=== PATIENT | male | born 1945 | race Caucasian/White ===

== ENCOUNTER 2017-03-12 09:59 | Inpatient (IN) | payer MEDICARE ==
[~2017-03-12] VITALS: Ht 190.5 cm; Wt 69.6 kg
[2017-03-12] MEDS ORDERED: VENTOLIN HFA IN (10:22)
[2017-03-12] MEDS ORDERED: PULMICORT0.25 MG/2 IN (10:25)
[2017-03-12] MEDS ORDERED: DIGOXIN0.125 MG PO (10:25)
[2017-03-12] MEDS ORDERED: ENALAPRIL2.5 MG PO (10:26)
[2017-03-12] MEDS ORDERED: DILTIAZEM30 MG PO (10:26)
[2017-03-12] MEDS ORDERED: LOPRESSOR25 MG PO (10:27)
[2017-03-12] MEDS ORDERED: GUAIFENESIN400 MG PO (10:27)
[2017-03-12] MEDS ORDERED: SIMVASTATIN10 MG PO (10:28)
[2017-03-12] MEDS ORDERED: TRAMADOL HCL50 MG PO (10:29)
[2017-03-12] MEDS ORDERED: CETIRIZINE10 MG PO (10:30)
[2017-03-12] MEDS ORDERED: COUMADIN5 MG PO (10:30)
[2017-03-12 10:54] LABS: HEMATOCRIT 40.5 % (39.0-50.0); IMMATURE GRANULOCYTES 0.8 % (0.0-1.0); MEAN CELL VOLUME 90.4 fL CALC (80.0-100.0); MEAN CORPUSCULAR HGB CONC 32.1 g/L CALC (32.0-36.0); NEUT# 13.56 thou/uL (1.82-7.42); RED BLOOD COUNT 4.48 mill/uL (4.70-6.10); RED CELL DISTRI WIDTH 11.8 % (11.5-15.5)
[2017-03-12 11:13] LABS: ALBUMIN 3.2 g/dL (3.2-5.0); ALKALINE PHOSPHATASE 96 u/l (38-126); AMYLASE < 30 u/l (30-110); ANION GAP 19 (6-22 (CALC)); BILIRUBIN, TOTAL 0.9 mg/dL (0.0-1.4); BUN 15 mg/dL (8-23); BUN/CREATININE RATIO 25 (12-20 (CALC)); CALCIUM 8.7 mg/dL (8.4-10.2); CARBON DIOXIDE 30 mmol/l (22-30); CHLORIDE 85 mmol/l (95-108); CREATININE 0.6 mg/dL (0.7-1.3); GFR > 60 ML/MIN (>=60 (CALC)); GFR FOR AFR.AMER. > 60 ML/MIN (>=60 (CALC)); GLUCOSE 113 mg/dL (82-115); LIPASE 40 u/l (23-300); POTASSIUM 4.2 mmol/l (3.5-5.1); SGOT/AST 20 u/l (19-48); SGPT/ALT 25 u/l (11-66); SODIUM 129 mmol/l (137-146); TOTAL PROTEIN 5.9 g/dL (6.3-8.2)
[2017-03-12] MEDS ORDERED: ALBUTEROL1 IN (11:14)
[2017-03-12] MEDS ORDERED: ALBUTEROL/ IN (11:22)
[2017-03-12 11:25] LABS: MYOGLOBIN 74 ng/mL (0 - 121)
[2017-03-12] MEDS ORDERED: [UNRECOGNIZED DRUG - OTHER] OU (11:26)
[2017-03-12] MEDS ORDERED: ALLERGY NA50 MCG/ACT NAB (11:28)
[2017-03-12 12:03] LABS: URINE BLOOD DIPSTICK MODERATE (NEGATIVE); URINE GLUCOSE - DIPSTICK NEGATIVE (NEGATIVE); URINE KETONE >=80 mg/dL (NEGATIVE); URINE LEUK ESTERASE NEGATIVE (NEGATIVE); URINE NITRITE - DIPSTICK NEGATIVE (Negative); URINE PROTEIN - DIPSTICK 30 mg/dL (NEG-TRACE); URINE SPECIFIC GRAVITY 1.025
[2017-03-12 12:04] LABS: URINE BILIRUBIN - DIPSTICK MODERATE (NEGATIVE); URINE CLARITY SLIGHT CLOUDY; URINE COLOR DK. YELLOW
[2017-03-12 12:05] LABS: URINE EPITHELIAL CELLS FEW EPI/hpf (0-FEW); URINE MUCUS MODERATE hpf (NONE-FEW)
[2017-03-12 12:15] LABS: PROTHROMBIN TIME 126.5 SECONDS (9.0-12.5)
[2017-03-12 14:30] VITALS: BP 134/76
[2017-03-12 20:00] VITALS: BP 133/66
[2017-03-12 23:50] VITALS: BP 128/75
[2017-03-13 04:00] VITALS: BP 136/70
[2017-03-13 05:57] LABS: HEMATOCRIT 34.2 % (39.0-50.0); IMMATURE GRANULOCYTES 0.7 % (0.0-1.0); MEAN CELL VOLUME 89.8 fL CALC (80.0-100.0); MEAN CORPUSCULAR HGB 28.9 pG CALC (26.0-32.0); MEAN CORPUSCULAR HGB CONC 32.2 g/L CALC (32.0-36.0); NEUT# 12.91 thou/uL (1.82-7.42); RED BLOOD COUNT 3.81 mill/uL (4.70-6.10); RED CELL DISTRI WIDTH 11.8 % (11.5-15.5)
[2017-03-13 06:06] LABS: ANION GAP 15 (6-22 (CALC)); BUN 12 mg/dL (8-23); BUN/CREATININE RATIO 24 (12-20 (CALC)); CARBON DIOXIDE 27 mmol/l (22-30); CHLORIDE 94 mmol/l (95-108); CREATININE 0.5 mg/dL (0.7-1.3); GFR > 60 ML/MIN (>=60 (CALC)); GFR FOR AFR.AMER. > 60 ML/MIN (>=60 (CALC)); GLUCOSE 101 mg/dL (82-115); POTASSIUM 3.6 mmol/l (3.5-5.1); SODIUM 132 mmol/l (137-146)
[2017-03-13 06:17] LABS: INTERNATIONAL NORMALIZED RATIO 1.8 RATIO (0.7-1.3); PROTHROMBIN TIME 19.6 SECONDS (9.0-12.5)
[2017-03-13 09:46] VITALS: BP 179/80
[2017-03-13 11:20] VITALS: BP 117/58
[2017-03-13 15:25] VITALS: BP 120/63
[2017-03-13 20:20] VITALS: BP 135/72
[2017-03-13 23:20] VITALS: BP 130/72
[2017-03-14 04:20] VITALS: BP 111/63
[2017-03-14 05:31] LABS: HEMATOCRIT 29.9 % (39.0-50.0); HEMOGLOBIN 9.5 g/dl (14.0-18.0); MEAN CELL VOLUME 91.7 fL CALC (80.0-100.0); MEAN CORPUSCULAR HGB 29.1 pG CALC (26.0-32.0); MEAN CORPUSCULAR HGB CONC 31.8 g/L CALC (32.0-36.0); RED BLOOD COUNT 3.26 mill/uL (4.70-6.10); RED CELL DISTRI WIDTH 11.9 % (11.5-15.5)
[2017-03-14 05:42] LABS: INTERNATIONAL NORMALIZED RATIO 1.5 RATIO (0.7-1.3); PROTHROMBIN TIME 16.6 SECONDS (9.0-12.5)
[2017-03-14 05:50] LABS: ANION GAP 10 (6-22 (CALC)); BUN 11 mg/dL (8-23); BUN/CREATININE RATIO 23 (12-20 (CALC)); CARBON DIOXIDE 31 mmol/l (22-30); CHLORIDE 99 mmol/l (95-108); CREATININE 0.5 mg/dL (0.7-1.3); GFR > 60 ML/MIN (>=60 (CALC)); GFR FOR AFR.AMER. > 60 ML/MIN (>=60 (CALC)); GLUCOSE 135 mg/dL (82-115); SODIUM 136 mmol/l (137-146)
[2017-03-14 08:40] VITALS: BP 105/48
[2017-03-14 11:30] VITALS: BP 103/54
[2017-03-14 15:00] VITALS: BP 114/58
[2017-03-14 19:20] VITALS: BP 119/52
[2017-03-15 00:05] VITALS: BP 124/62
[2017-03-15 04:16] VITALS: BP 128/74
[2017-03-15 05:57] LABS: HEMATOCRIT 31.4 % (39.0-50.0); HEMOGLOBIN 9.8 g/dl (14.0-18.0); MEAN CELL VOLUME 93.7 fL CALC (80.0-100.0); MEAN CORPUSCULAR HGB 29.3 pG CALC (26.0-32.0); MEAN CORPUSCULAR HGB CONC 31.2 g/L CALC (32.0-36.0); RED BLOOD COUNT 3.35 mill/uL (4.70-6.10); RED CELL DISTRI WIDTH 11.9 % (11.5-15.5)
[2017-03-15 06:03] LABS: ANION GAP 10 (6-22 (CALC)); BUN 13 mg/dL (8-23); BUN/CREATININE RATIO 22 (12-20 (CALC)); CALCIUM 8.4 mg/dL (8.4-10.2); CARBON DIOXIDE 31 mmol/l (22-30); CHLORIDE 100 mmol/l (95-108); CREATININE 0.6 mg/dL (0.7-1.3); GFR > 60 ML/MIN (>=60 (CALC)); GFR FOR AFR.AMER. > 60 ML/MIN (>=60 (CALC)); GLUCOSE 126 mg/dL (82-115); POTASSIUM 4.4 mmol/l (3.5-5.1); SODIUM 137 mmol/l (137-146)
[2017-03-15 08:20] LABS: INTERNATIONAL NORMALIZED RATIO 2.2 RATIO (0.7-1.3); PROTHROMBIN TIME 24.8 SECONDS (9.0-12.5)
[2017-03-15 09:29] VITALS: BP 105/51
[2017-03-15] MEDS ORDERED: PREDNISONE10 MG PO (10:59)
[2017-03-15] MEDS ORDERED: DOXYCYCL HYC100 MG PO (10:59)
[2017-03-15] MEDS ORDERED: TRAMADOL HCL50 MG PO (10:59)
[2017-03-15] MEDS ORDERED: FLORASTOR250 M1 PO (10:59)
[2017-03-15 11:15] VITALS: BP 121/55
[2017-03-15 15:00] VITALS: BP 111/62
[2017-03-15 15:30] VITALS: BP 131/61
== END 2017-03-15 16:09 | DRG 641 ==
LOC: ED 09:59 → ED-I 12:55 → ED 13:10 → MS2 13:11
PROVIDERS: Emergency Medicine; Nurse Practitioner Family; ADMIT Internal Medicine; ATTEND Internal Medicine
PROC: 0T9B70Z Drainage of Bladder with Drainage Device, Via Natural or Artificial Opening (ICD-10-PCS; principal; 2017-03-12)
DX: E87.1 Hypo-osmolality and hyponatremia (principal); E86.0 Dehydration; E87.2 Acidosis; J44.1 Chronic obstructive pulmonary disease with (acute) exacerbation; I48.91 Unspecified atrial fibrillation; Z99.81 Dependence on supplemental oxygen; I10 Essential (primary) hypertension; E78.5 Hyperlipidemia, unspecified; S39.94XA Unspecified injury of external genitals, initial encounter; D72.828 Other elevated white blood cell count; H54.42 Blindness, left eye, normal vision right eye; K59.00 Constipation, unspecified; R33.9 Retention of urine, unspecified; R79.1 Abnormal coagulation profile; E87.8 Other disorders of electrolyte and fluid balance, not elsewhere classified; R68.0 Hypothermia, not associated with low environmental temperature; T45.515A Adverse effect of anticoagulants, initial encounter; W54.8XXA Other contact with dog, initial encounter; Z87.891 Personal history of nicotine dependence
CPT/HCPCS: J3370; Q9967

== ENCOUNTER 2017-04-06 11:21 | Inpatient (IN) | payer MEDICARE ==
[2017-04-06] VITALS (8 sets, daily range): BP systolic 102–136; BP diastolic 45–66
[~2017-04-06] VITALS: Ht 190.5 cm; Wt 75.0 kg
[~2017-04-06 11:21] MED LIST: ALBUTEROL/ IN; ALBUTEROL1 IN; ALLERGY NA50 MCG/ACT NAB; CETIRIZINE10 MG PO; COUMADIN5 MG PO; DIGOXIN0.125 MG PO; DILTIAZEM30 MG PO; DOXYCYCL HYC100 MG PO; ENALAPRIL2.5 MG PO; FLORASTOR250 M1 PO; GUAIFENESIN400 MG PO; LOPRESSOR25 MG PO; PREDNISONE10 MG PO; PULMICORT0.25 MG/2 IN; SIMVASTATIN10 MG PO; TRAMADOL HCL50 MG PO; VENTOLIN HFA IN; [UNRECOGNIZED DRUG - OTHER] OU
[2017-04-06] MEDS ORDERED: VANTIN200 M1 PO (12:06)
[2017-04-06] MEDS ORDERED: AZITHROMYCIN PO (12:07)
[2017-04-06 12:53] LABS: HEMATOCRIT 23.2 % (39.0-50.0); IMMATURE GRANULOCYTES 0.7 % (0.0-1.0); MEAN CELL VOLUME 91.3 fL CALC (80.0-100.0); MEAN CORPUSCULAR HGB 27.6 pG CALC (26.0-32.0); MEAN CORPUSCULAR HGB CONC 30.2 g/L CALC (32.0-36.0); NEUT# 6.14 thou/uL (1.82-7.42); RED BLOOD COUNT 2.54 mill/uL (4.70-6.10); RED CELL DISTRI WIDTH 13.2 % (11.5-15.5)
[2017-04-06 13:12] LABS: ALBUMIN 2.5 g/dL (3.2-5.0); ALKALINE PHOSPHATASE 87 u/l (38-126); ANION GAP 12 (6-22 (CALC)); BILIRUBIN, TOTAL 0.2 mg/dL (0.0-1.4); BUN 11 mg/dL (8-23); BUN/CREATININE RATIO 24 (12-20 (CALC)); CALCIUM 8.3 mg/dL (8.4-10.2); CARBON DIOXIDE 31 mmol/l (22-30); CHLORIDE 94 mmol/l (95-108); CREATININE 0.5 mg/dL (0.7-1.3); GFR > 60 ML/MIN (>=60 (CALC)); GFR FOR AFR.AMER. > 60 ML/MIN (>=60 (CALC)); GLUCOSE 103 mg/dL (82-115); POTASSIUM 4.8 mmol/l (3.5-5.1); SGOT/AST 11 u/l (19-48); SGPT/ALT 17 u/l (11-66); SODIUM 132 mmol/l (137-146); TOTAL PROTEIN 5.2 g/dL (6.3-8.2)
[2017-04-06 13:40] LABS: INTERNATIONAL NORMALIZED RATIO 1.9 RATIO (0.7-1.3); PROTHROMBIN TIME 21.5 SECONDS (9.0-12.5)
[2017-04-06 20:09] LABS: URINE BILIRUBIN - DIPSTICK NEGATIVE (NEGATIVE); URINE BLOOD DIPSTICK NEGATIVE (NEGATIVE); URINE CLARITY CLEAR; URINE COLOR YELLOW; URINE GLUCOSE - DIPSTICK NEGATIVE (NEGATIVE); URINE KETONE NEGATIVE (NEGATIVE); URINE LEUK ESTERASE NEGATIVE (NEGATIVE); URINE NITRITE - DIPSTICK NEGATIVE (Negative); URINE PH 5.5 (4.5-8.0); URINE PROTEIN - DIPSTICK NEGATIVE (NEG-TRACE); URINE UROBILINOGEN - DIPSTICK 0.2 E.U./dL (0.2)
[2017-04-07 04:31] VITALS: BP 104/55
[2017-04-07 05:31] LABS: HEMATOCRIT 29.5 % (39.0-50.0); HEMOGLOBIN 9.6 g/dl (14.0-18.0); MEAN CELL VOLUME 88.9 fL CALC (80.0-100.0); MEAN CORPUSCULAR HGB 28.9 pG CALC (26.0-32.0); MEAN CORPUSCULAR HGB CONC 32.5 g/L CALC (32.0-36.0); RED BLOOD COUNT 3.32 mill/uL (4.70-6.10); RED CELL DISTRI WIDTH 13.8 % (11.5-15.5)
[2017-04-07 05:39] LABS: INTERNATIONAL NORMALIZED RATIO 1.6 RATIO (0.7-1.3); PROTHROMBIN TIME 17.8 SECONDS (9.0-12.5)
[2017-04-07 05:40] LABS: ALBUMIN 2.2 g/dL (3.2-5.0); ALKALINE PHOSPHATASE 78 u/l (38-126); ANION GAP 11 (6-22 (CALC)); BILIRUBIN, TOTAL 0.6 mg/dL (0.0-1.4); BUN 13 mg/dL (8-23); BUN/CREATININE RATIO 27 (12-20 (CALC)); CALCIUM 8.4 mg/dL (8.4-10.2); CARBON DIOXIDE 30 mmol/l (22-30); CHLORIDE 97 mmol/l (95-108); CREATININE 0.5 mg/dL (0.7-1.3); DIGOXIN 0.7 ng/mL (0.8-2.0); GFR > 60 ML/MIN (>=60 (CALC)); GFR FOR AFR.AMER. > 60 ML/MIN (>=60 (CALC)); GLUCOSE 93 mg/dL (82-115); MAGNESIUM 1.9 mg/dL (1.6-2.3); POTASSIUM 4.3 mmol/l (3.5-5.1); SGOT/AST 10 u/l (19-48); SGPT/ALT 18 u/l (11-66); SODIUM 133 mmol/l (137-146); TOTAL PROTEIN 4.7 g/dL (6.3-8.2)
[2017-04-07 08:15] VITALS: BP 122/64
[2017-04-07 11:30] VITALS: BP 95/53
[2017-04-07 15:41] VITALS: BP 110/56
[2017-04-07 19:50] VITALS: BP 109/60
[2017-04-08 04:50] VITALS: BP 108/53
[2017-04-08 05:12] LABS: ANION GAP 10 (6-22 (CALC)); BUN 9 mg/dL (8-23); BUN/CREATININE RATIO 19 (12-20 (CALC)); CALCIUM 8.5 mg/dL (8.4-10.2); CARBON DIOXIDE 31 mmol/l (22-30); CHLORIDE 98 mmol/l (95-108); CREATININE 0.5 mg/dL (0.7-1.3); GFR > 60 ML/MIN (>=60 (CALC)); GFR FOR AFR.AMER. > 60 ML/MIN (>=60 (CALC)); GLUCOSE 82 mg/dL (82-115); POTASSIUM 4.3 mmol/l (3.5-5.1); SODIUM 134 mmol/l (137-146)
[2017-04-08 05:16] LABS: INTERNATIONAL NORMALIZED RATIO 1.5 RATIO (0.7-1.3); PROTHROMBIN TIME 17.1 SECONDS (9.0-12.5)
[2017-04-08 05:26] LABS: HEMATOCRIT 30.5 % (39.0-50.0); HEMOGLOBIN 9.6 g/dl (14.0-18.0); MEAN CELL VOLUME 89.7 fL CALC (80.0-100.0); MEAN CORPUSCULAR HGB 28.2 pG CALC (26.0-32.0); MEAN CORPUSCULAR HGB CONC 31.5 g/L CALC (32.0-36.0); RED BLOOD COUNT 3.4 mill/uL (4.70-6.10); RED CELL DISTRI WIDTH 13.9 % (11.5-15.5)
[2017-04-08 08:19] VITALS: BP 118/62
[2017-04-08 11:16] VITALS: BP 107/53
[2017-04-08] MEDS ORDERED: LEVAQUIN750 MG PO (13:22)
[2017-04-08] MEDS ORDERED: DALIRESP500 MCG PO (13:23)
[2017-04-08] MEDS ORDERED: TRAMADOL HCL50 MG PO (13:24)
== END 2017-04-08 14:15 | disposition home or self-care (01) | DRG 728 ==
LOC: ED 11:21 → ED-I 14:28 → ED 15:05 → MS2 15:06
PROVIDERS: Family Medicine; ADMIT Internal Medicine; ATTEND Internal Medicine
PROC: 30233N1 Transfusion of Nonautologous Red Blood Cells into Peripheral Vein, Percutaneous Approach (ICD-10-PCS; principal; 2017-04-06)
PROC: 30233N1 Transfusion of Nonautologous Red Blood Cells into Peripheral Vein, Percutaneous Approach (ICD-10-PCS; 2017-04-06)
DX: N45.3 Epididymo-orchitis (principal); J96.11 Chronic respiratory failure with hypoxia; I48.2 Chronic atrial fibrillation; J44.9 Chronic obstructive pulmonary disease, unspecified; D64.9 Anemia, unspecified; I10 Essential (primary) hypertension; H54.42 Blindness, left eye, normal vision right eye; Z79.01 Long term (current) use of anticoagulants; Z87.891 Personal history of nicotine dependence
CPT/HCPCS: G0328; J1756; P9016